=== PATIENT | male | born 1965 | race Caucasian/White ===

== ENCOUNTER 2020-04-21 13:56 | Emergency (ER) | payer OTHER ==
[~2020-04-21] VITALS: Ht 182.9 cm; Wt 99.8 kg
[~2020-04-21 13:56] MED LIST: ALLOPURINOL100 MG PO; LOSARTAN-HCTZ1 EAC2 PO; NORCO 7.5-3251 EACH PO; PANTOPRAZOLE SO40 MG PO
[2020-04-21] MEDS ORDERED: HYDROCODONE/APAP 10MG-325MG TAB PO ONE (15:15)
[2020-04-21] MEDS ORDERED: KETOROLAC TROMETHAMINE 60 MG/2 ML VIAL IM ONE (15:15)
--- NOTE | 2020-04-21 16:02 | Emergency Department Note ---
History of Present Illnes History of Present Illness Chief Complaint: Extremity Trauma/Pain History of Present Illness This is a 55 year old male Patient in from home with complaints of right knee pain and weakness for the last month. Patient reports that the pain is located to the posterior aspect of his knee. Patient reports that his right knee "gave out" while walking to his truck today after a chiropractor appointment and now if he tries to stand on it the pain is severe. Patient denies known injury to the right knee. Has an appt with Ortho but not for a few wks, Dr Pacheco Historian: Patient Arrival Mode: Car Costume Mistress Required: No Onset (how long ago): month(s) (1) Location: RIGHT KNEE Quality: PAIN Radiation: Reports non-radiation Severity: severe Onset quality: gradual Timing of current episode: constant Progression: worsening Chronicity: new Context: Denies recent illness, Denies trauma/injury Relieving factors: none Exacerbating factors: none Associated symptoms: Reports denies other symptoms Past Medical/Family History Physician Review I have reviewed the patient's past medical and family history. Any updates have been documented here. Past Medical History Recent Fever: No Clinical Suspicion of Infectio: No New/Unexplained Change in Ment: No Past Medical History: Hypertension, GERD Other Medical History: gout Past Surgical History: Back Surgery Other Surgery: left knee surgery Social History Smoking Cessation: Never Smoker Counseling Performed: No Alcohol Use: Occasional Any Illegal Drug Use: No TB Exposure/Symptoms: No Physically hurt or threatened: No Family History Family history of heart diseas: No Other Any Pre-Existing Lines (PICC,: No Review of Systems Review of Systems Constitutional: Reports no symptoms EENTM: Reports no symptoms Cardiovascular: Reports no symptoms Respiratory: Reports no symptoms Gastrointestinal: Reports no symptoms Genitourinary: Reports no symptoms Musculoskeletal: Reports as per HPI Integumentary: Reports no symptoms Neurological: Reports no symptoms Psychological: Reports no symptoms Endocrine: Reports no symptoms Hematological/Lymphatic: Reports no symptoms Physical Exam Related Data Allergies: Coded Allergies: No Known Allergies (Unverified , 04/11/16) Triage Vital Signs Vital Signs Date Time Temp Pulse Resp B/P (MAP) Pulse Ox O2 Delivery O2 Flow Rate FiO2 04/21/20 14:21 97.8 55 16 164/90 98 Room Air Vital signs reviewed: Yes Physical Exam CONSTITUTIONAL Constitutional: Present well-developed, Present well-nourished HENT HENT: Present normocephalic, Present atraumatic, Present oropharynx clear/moist, Present nose normal HENT L/R: Present left ext ear normal, Present right ext ear normal EYES Eyes: Reports PERRL, Reports conjunctivae normal NECK Neck: Present ROM normal PULMONARY Pulmonary: Present effort normal, Present breath sounds normal CARDIOVASCULAR Cardiovascular: Present regular rhythm, Present heart sounds normal, Present capillary refill normal, Present normal rate GASTROINTESTINAL Abdominal: Present soft, Present nontender, Present bowel sounds normal GENITOURINARY Genitourinary: Present exam deferred SKIN Skin: Present warm, Present dry MUSCULOSKELETAL Musculoskeletal: Present other (decr rom/extension of right knee, mild tenderness Popliteal space but no swelling, no joint effusion, no calf/hamstring tenderness, neg Esmer's) NEUROLOGICAL Neurological: Present alert, Present oriented x 3, Present no gross motor or sensory deficits PSYCHOLOGICAL Psychological: Present mood/affect normal, Present judgement normal Assessment & Plan Medical Decision Making MDM pt came to ER wanting to get MRI prior to Ortho appt, no trauma so no need for xrays since no bony tenderness - I offered pain meds, knee brace & explained why MRI is not acutely warranted from ER Reassessment Reassessment dc home, tyl #3, knee brace, F/U Ortho Assessment & Plan Final Impression: (1) Internal derangement of knee Depart Disposition: HOME, SELF-CARE Last Vital Signs Date Time Temp Pulse Resp B/P (MAP) Pulse Ox O2 Delivery O2 Flow Rate FiO2 04/21/20 14:21 97.8 55 16 164/90 98 Room Air Home Meds Reported Medications Pantoprazole Sodium* (PROTONIX) 40 Mg Tablet.dr, 40 MG PO DAILY, TAB 10/07/15 Losartan/Hydrochlorothiazide (LOSARTAN-HCTZ 100-12.5 MG TAB) 1 Each Tablet, PO DAILY 10/07/15 Allopurinol (ALLOPURINOL) 100 Mg Tablet, 100 MG PO DAILY, #30 TAB 10/07/15 Medications in the ED Acetaminophen/ Hydrocodone Bitart 1 ea ONCE ONCE PO ; Start 04/21/20 at 15:15; Stop 04/21/20 at 15:30; Status DC Ketorolac Tromethamine 60 mg ONCE ONCE IM ; Start 04/21/20 at 15:15; Stop 1 at 15:30; Status DC TOÑITO PHAN MD Apr 21, 2020 16:02
== END 2020-04-21 16:38 | disposition home or self-care (01) ==
LOC: ER 16:23
DX: M25.561 Pain in right knee (principal); M23.91 Unspecified internal derangement of right knee; I10 Essential (primary) hypertension; K21.9 Gastro-esophageal reflux disease without esophagitis; M10.9 Gout, unspecified
CPT/HCPCS: 29530; 99284; J1885

== ENCOUNTER → 2021-08-12 | Day surgery (SDC) | payer OTHER ==
[~2021-08-12] MED LIST changes: +FENTANYL CITRATE/PF 100MCG/2 ML INJ ONE; +GLUCAGON FOR INJ 1 MG VIAL ONE; +HYOSCYAMINE SULFATE 0.5 MG/ML INJ ONE; +LIDOCAINE HCL 2% LOCAL INJ 5 ML SDV VIAL INJ ONE; +MIDAZOLAM HCL 2 MG/2 ML VIAL ONE; +PROPOFOL IV EMULSION 10 MG/ML 20 ML VIAL ONE
[2021-08-12 11:30] VITALS: BP 108/81
== END | disposition home or self-care (01) ==
LOC: OR 08:02
PROVIDERS: ATTEND Internal Medicine Gastroenterology
DX: K22.70 Barrett's esophagus without dysplasia (principal); Z86.010 Personal history of colon polyps; K31.7 Polyp of stomach and duodenum; K29.70 Gastritis, unspecified, without bleeding; K50.90 Crohn's disease, unspecified, without complications; K31.89 Other diseases of stomach and duodenum; K20.90 Esophagitis, unspecified without bleeding; K21.9 Gastro-esophageal reflux disease without esophagitis; K57.30 Diverticulosis of large intestine without perforation or abscess without bleeding; K64.8 Other hemorrhoids; Z71.3 Dietary counseling and surveillance; I10 Essential (primary) hypertension; M10.9 Gout, unspecified; Z01.810 Encounter for preprocedural cardiovascular examination; Z01.812 Encounter for preprocedural laboratory examination; Z20.822 Contact with and (suspected) exposure to COVID-19; Z79.899 Other long term (current) drug therapy; Z68.32 Body mass index [BMI] 32.0-32.9, adult; Z80.0 Family history of malignant neoplasm of digestive organs
CPT/HCPCS: 43239; 45378; 93005; J1610; J1980; J2001; J2250; J3010; U0002